=== PATIENT | male | born 1965 | race African-American/Black ===

== ENCOUNTER 2016-11-26 08:14 | Emergency (ER) | payer BC, OTHER ==
[2016-11-26 08:31] VITALS: BP 161/98; PULSE 72; RESP 16; TEMP 98.8; O2SAT 97
[2016-11-26] MEDS ORDERED: ACETAMINOPHEN 500 MG TAB PO ONE (09:08)
[2016-11-26] MEDS ORDERED: ONDANSETRON DISINTEGRATING 4 MG TAB PO ONE (09:08)
--- NOTE | 2016-11-26 09:11 | EDPHY ---
H & P Time Seen by Provider: 11/26/16 08:36 HPI/ROS: This patient complains of a eye pain right-sided sharp in nature onset Sunday evening. He does not recall any injury to the eye. He reports sharp feeling in terms of the nature the pain is 7.5/10 intensity. He has mild associated photophobia. He reports no associated retrobulbar or headache that is also sharp in nature and started after the onset of the eye symptoms. The headache does not worsen with movement. He tried 400 mg of ibuprofen 530 this morning without significant improvement in the eye pain or headache. He has not had this type of eye pain or headache in the past. He notes no other exacerbating factors. He denies any other associated symptoms. He brought himself here by private vehicle for evaluation. ROS: No fevers or chills. No other constitutional symptoms HEENT: No recent trauma. He does not were contacts. He denies any vision changes associated with this. He reports no recent cold symptoms. No sinus pain or pressure. No sore throat. No ear pain. Pulmonary: No shortness of breath or cough Cardiovascular: No heart palpitations or lightheadedness GI: He has chronic nausea for years that has not changed. That is being worked up as an outpatient. : No complaints Integumentary: No complaints 10 point ROS is otherwise negative. Past Medical/Surgical History: Chronic nausea. GERD He does not were contacts Family history of a sister with migraines. No family history of intracranial aneurysms or bleeding strokes. Smoking Status: Former smoker Physical Exam: Physical exam: Vital signs are normal General: Patient is in no acute distress. HEENT: Is no external evidence of trauma on exam. Nose atraumatic. Ears: Clear bilaterally with no hemotympanum. Oropharynx: No dental trauma or malocclusion. No intraoral lacerations. Eyes: Pupils are equal and reactive to light. Extraocular motions are intact. Optic fundi: Clear with no papilledema or hemorrhage. Slit-lamp exam after proparacaine anesthesia reveals a corneal abrasion at 9 o'clock-right eye 5 mm in length. The globe is intact. Lids and lashes are normal. Visual acuity reviewed as documented in nurse's documentation. Lungs: Clear to auscultation bilaterally Neck: Supple no meningismus. Cardiac: Regular rate and rhythm no murmur gallop or rub. Abdomen: Soft nontender no organomegaly Neuro: GCS of 15. Cranial nerves II through XII intact. Cerebellar exam is normal as judged by symmetric rapid hand movements bilaterally. No pronator drift. No sensory or motor deficits are appreciated. Initial differential diagnosis: Corneal abrasion, Migraine, tension headache, LAN ADMINISTRATOR lesion, intracranial bleed Constitutional: Initial Vital Signs Temperature (C) 37.1 C 11/26/16 08:29 Heart Rate 72 11/26/16 08:29 Respiratory Rate 16 11/26/16 08:29 Blood Pressure 161/98 H 11/26/16 08:29 O2 Sat (%) 97 11/26/16 08:29 O2 Delivery Mode Room Air Allergies/Adverse Reactions: No Known Allergies Allergy (Unverified 11/26/16 08:32) Home Medications: Medication Instructions Recorded Ofloxacin 0.3% [Ocuflox 0.3% (RX)] 2 drops EACHEYE Q1 #1 btl 11/26/16 Ondansetron Odt [Zofran Odt] 4 - 8 mg PO Q4PRN PRN #4 tab 11/26/16 PRILOSEC 11/26/16 traMADol [Ultram 50 mg (*)] 50 - 100 mg PO Q4 PRN #15 tab 11/26/16 MDM/Departure - MDM Medications Given: Discontinued Medications Acetaminophen (Tylenol) 1,000 mg PO EDNOW ONE Stop: 11/26/16 09:09 Last Admin: 11/26/16 09:20 Dose: 1,000 mg Ondansetron HCl (Zofran Odt) 8 mg PO EDNOW ONE Stop: 11/26/16 09:09 Last Admin: 11/26/16 09:20 Dose: 8 mg ED Course/Re-evaluation: Zofran sublingual and Tylenol p. o.. Patient had relief of his eye pain with proparacaine anesthesia drops that were instilled by our nurse prior to my slit-lamp exam. His headache persists. Discussion: I Explained the differential diagnosis for his headache that includes potential associated tension headache versus migraine or other vascular headache. The patient is unwilling to have an IV placed for treatment of migraine-like headache. He understands the potential of missing other sources of headache such as vascular headache without further tx. & workup 7 he accepts this risk. The patient explains that he has unwilling to wait for family members to pick him up at 12:30 p.m. and prefers treatment with oral analgesics and discharge home. He feels confident that with further treatment of his corneal abrasion, his headache should resolve. I Explained corneal abrasion in some detail the patient and I suspect this occurred in his sleep. The shape of the corneal abrasion resembles a fingernail scratch. The patient understands the need to return to the emergency department should he have any worsening of his headache despite the treatment plan of ibuprofen, Tylenol and tramadol. While so placement Ocuflox eyedrops. 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 - Depart Disposition: Home, Routine, Self-Care Clinical Impression: Corneal abrasion Qualifiers: Encounter type: initial encounter Laterality: right Qualified Code(s): S05.01XA - Injury of conjunctiva and corneal abrasion without foreign body, right eye, initial encounter Acute headache Qualifiers: Headache type: unspecified Intractability: not intractable Qualified Code(s): R51 - Headache Condition: Good Instructions: Corneal Abrasion (ED), Acute Headache (ED) Additional Instructions: Diagnoses: 1. Corneal abrasion 2. Acute headache Plan: Ibuprofen-600 mg per 6 hours as needed Tylenol 1000 mg per 4 hours few times a day as needed in addition Tramadol in addition if needed. No driving, alcohol work with tramadol Antibiotic eye drops as prescribed Her symptoms should improve over the next 2-3 days. Follow up with the insurance follow up specialist if your symptoms are not resolving over the next few days. Return emergency department if her headache worsens despite the treatment plan. Prescriptions: Ofloxacin 0.3% [Ocuflox 0.3% (RX)] 2 drops EACHEYE Q1 #1 btl Ondansetron Odt [Zofran Odt] 4 - 8 mg PO Q4PRN PRN #4 tab PRN Reason: Vomiting traMADol [Ultram 50 mg (*)] 50 - 100 mg PO Q4 PRN #15 tab PRN Reason: breakthrough pain Referrals: CELENA,VASQUEZ [Other] - As per Instructions Hilda Yuan MD [Non Staff Provider (MD)] - As per Instructions
== END 2016-11-26 09:23 | disposition home or self-care (01) ==
LOC: CED 08:14
DX: S05.01XA Injury of conjunctiva and corneal abrasion without foreign body, right eye, initial encounter (principal); R51 Headache; Z87.891 Personal history of nicotine dependence; X58.XXXA Exposure to other specified factors, initial encounter

== ENCOUNTER 2016-11-27 17:46 | Emergency (ER) | payer BC ==
[2016-11-27 17:54] VITALS: RESP 16; TEMP 97.9
[2016-11-27] MEDS ORDERED: PROPARACAINE 0.5% 15 ML OPHT DROP RTEYE ONE (18:03)
[2016-11-27] MEDS ORDERED: FLUORESCEIN SODIUM 1 MG STRIP OP ONE ×2 (18:04)
--- NOTE | 2016-11-27 18:35 | EDPHY ---
H & P Time Seen by Provider: 11/27/16 17:59 HPI/ROS: CHIEF COMPLAINT: Headache, right eye pain HISTORY OF PRESENT ILLNESS: The patient is a 51-year-old male who presents to the emergency department with ongoing right-sided eye pain and right forehead headache. Patient's symptoms started Sunday evening. He did not recall an injury to his eye. He states the pain is fairly severe around his right eye. He also has the sharp pain on his right forehead. He denies significant photophobia today but did report photophobia yesterday. He was seen in the emergency department by Dr. Grimes and was treated with Ocuflox drops for possible corneal abrasion. Patient states his symptoms have not improved on antibiotic. Today he had multiple episodes of nausea vomiting. No abdominal pain. No fevers or chills. No visual change. No neck stiffness. No pain with eye movement. The patient does not wear contacts. REVIEW OF SYSTEMS: My complete review of systems is negative except as mentioned in the HPI. Past Medical/Surgical History: Includes chronic nausea, GERD Past surgical history: Noncontributory Social history: Patient is a former smoker Family history: His sister has migraines. No CVA. Smoking Status: Former smoker Physical Exam: Vitals noted. GENERAL: Well-appearing, in no acute distress, alert. Visual acuity: Noted. 20/15 right eye, 20/30 OS Eyelids: Normal inspection, everted for exam. Conjunctiva and sclera: Normal inspection. No foreign material. No subconjunctival hemorrhage. No exudate. Not injected. Corneas: The eyes examined with and without fluorescein. Right eye have mildly injected. The multiple small circular lesions at the 5:00 position. There is a single similarly sized circular lesion the 7 o'clock position. There is no visible dendritic lesions. No ulceration. The patient's left eye does not have any lesions. EOMs: Intact. Pupils: PERRL, normal accommodation. Anterior chambers: Normal inspection. No hyphema. No cells or flare. Posterior segments: Normal funduscopic exam HEENT: See eye exam above. Patient has a single papule at the bridge of his nose. There is no erythema. No ulceration. No other lesions noted.. NECK: No lymphadenopathy, supple. RESPIRATORY: Clear to auscultation bilaterally, no rales, rhonchi or wheezing. CVS: Regular rate and rhythm, no rubs, murmurs, or gallops. ABDOMEN: Soft, nontender, nondistended, no organomegaly. Normal BACK: Normal to inspection, no CVA tenderness. SKIN: Normal color, no rash, warm, dry. No pallor. EXTREMITIES: Normal. NEURO/PSYCH: Alert and oriented, normal mood and affect, normal motor sensory exam. No obvious cranial nerve deficit. Constitutional: Initial Vital Signs Temperature (C) 36.6 C 11/27/16 17:50 Heart Rate 76 11/27/16 17:50 Respiratory Rate 16 11/27/16 17:50 Blood Pressure 146/87 H 11/27/16 17:50 O2 Sat (%) 95 11/27/16 17:50 O2 Delivery Mode Room Air Allergies/Adverse Reactions: No Known Allergies Allergy (Verified 11/27/16 17:49) Home Medications: Medication Instructions Recorded Ofloxacin 0.3% [Ocuflox 0.3% (RX)] 2 drops EACHEYE Q1 #1 btl 11/26/16 Ondansetron Odt [Zofran Odt] 4 - 8 mg PO Q4PRN PRN #4 tab 11/26/16 PRILOSEC 11/26/16 traMADol [Ultram 50 mg (*)] 50 - 100 mg PO Q4 PRN #15 tab 11/26/16 Erythromycin 0.5% 1 stef RTEYE 5XD 5 Days opht.oint 11/27/16 Ondansetron Odt [Zofran Odt 4 mg 4 mg PO Q4PRN PRN #7 tab 11/27/16 (*)] oxyCODONE/APAP 5/325 [Percocet 1 - 2 tab PO Q4PRN PRN #11 tab 11/27/16 5/325 (*)] Medical Decision Making ED Course/Re-evaluation: In the emergency department I discussed possible etiologies with the patient. I answered his questions. The patient consented to slit-lamp exam. He was given proparacaine drops for the exam. The proparacaine drops did make him feel better. Procedure: Interocular pressure. Patient consented to Elpidio-Pen evaluation. Patient's Elpidio-Pen pressures were 14 and 16 on repeat evaluation. I discussed the findings with Dr. Yuan from ophthalmology. She recommended I switched the patient to erythromycin ointment. She will see the patient in her office tomorrow. Patient was given Percocet 2 tablets orally and Zofran for 4 mg orally for his nausea and eye pain. On repeat exam is abdomen was soft, nontender nondistended. Patient was given warnings prior to leaving. He will return with worsening symptoms. Differential Diagnosis: My differential includes but is not limited to corneal abrasion, corneal ulcer, glaucoma, zoster, bacterial keratitis, viral keratitis, scleritis, foreign body , pre orbital cellulitis, orbital cellulitis - Data Points Medications Given: Discontinued Medications Fluorescein Sodium (Yvzqg-N-Vltza) 1 mg OP EDNOW ONE Stop: 11/27/16 18:05 Last Admin: 11/27/16 18:06 Dose: 1 mg Proparacaine HCl (Alcaine 0.5%) 1 drops RTEYE ONCE ONE Stop: 11/27/16 18:04 Last Admin: 11/27/16 18:06 Dose: 2 drops Departure - Departure Disposition: Home, Routine, Self-Care Clinical Impression: Acute right eye pain Condition: Good Instructions: Eye Pain (ED) Additional Instructions: You need 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 You been given the contact information. Call the office first thing tomorrow morning to make the appointment for tomorrow. Discontinue your Ocuflox drops. You should start taking erythromycin ointment. You have been written a prescription for erythromycin ointment, Percocet and Zofran. The Percocet is for pain and Zofran is for nausea. Use your medications as directed. Referrals: Hilda Yuan MD [Non Staff Provider (MD)] - 1 day without fail Prescriptions: Erythromycin 0.5% 1 stef RTEYE 5XD 5 Days opht.oint Ondansetron Odt [Zofran Odt 4 mg (*)] 4 mg PO Q4PRN PRN #7 tab PRN Reason: For Nausea & Vomiting oxyCODONE/APAP 5/325 [Percocet 5/325 (*)] 1 - 2 tab PO Q4PRN PRN #11 tab PRN Reason: For Moderate To Severe Pain
[2016-11-27] MEDS ORDERED: ONDANSETRON DISINTEGRATING 4 MG TAB PO ONE (18:45)
[2016-11-27] MEDS ORDERED: OXYCODONE/APAP 5/325 TAB PO ONE (18:45)
[2016-11-27 19:03] VITALS: BP 137/88; PULSE 75; O2SAT 94
== END 2016-11-27 18:55 | disposition home or self-care (01) ==
LOC: CED 17:46
DX: H57.11 Ocular pain, right eye (principal); Z87.891 Personal history of nicotine dependence